=== PATIENT | female | born 1995 | race Caucasian/White ===

== ENCOUNTER 2016-10-31 20:19 | Emergency (ER) | payer OTHER ==
[2016-10-31 20:48] VITALS: BP 118/70; PULSE 71; TEMP 98.4; BMI 30.2
--- NOTE | 2016-11-01 17:27 | EKG ---
Test Reason : Blood Pressure : / mmHG Vent. Rate : 071 BPM Atrial Rate : 071 BPM P-R Int : 158 ms QRS Dur : 086 ms QT Int : 400 ms P-R-T Axes : 042 117 044 degrees QTc Int : 434 ms NORMAL SINUS RHYTHM WITH SINUS ARRHYTHMIA LEFT POSTERIOR FASCICULAR BLOCK ABNORMAL ECG WHEN COMPARED WITH ECG OF 31-OCT-2015 20:52, NO SIGNIFICANT CHANGE WAS FOUND Confirmed by JONI RAY MD ([id number]) on 11/01/2016 5:27:31 PM Referred By: Confirmed By:JONI RAY MD
== END 2016-10-31 23:31 | disposition left against medical advice (07) ==
LOC: JERFT 20:19 → JER 20:19
DX: Z53.21 Procedure and treatment not carried out due to patient leaving prior to being seen by health care provider (principal)
CPT/HCPCS: 93005; 93010; 99281-25

== ENCOUNTER 2017-01-20 12:18 | Emergency (ER) | payer OTHER ==
[2017-01-20 12:25] VITALS: BP 116/66; PULSE 89; TEMP 98; BMI 29.2
--- NOTE | 2017-01-20 13:17 | PDOC ---
History of Present Illness - General Stated Complaint: LUMP Time Seen by Provider: 01/20/17 12:48 - History of Present Illness Initial Comments: 01/20/17 13:12 CHIEF COMPLAINT: lump HISTORY OF PRESENT ILLNESS: 21 yo F presents to fast track with "bump" to buttocks. PAtient states "I was wiping last night and I felt a little bump down there that hurts when I touch it." She denies fever, nausea, vomiting, but reports diarrhea yesterday. She states that she is sexually active with one partner x 3 years and he currently has cold sores. REVIEW OF SYSTEMS General/Constitutional: Denies fever or chills. Respiratory: Denies cough, wheezing, or hemoptysis. Gastrointestinal: Diarrhea yesterday. Denies nausea, vomiting. Genitourinary: Denies dysuria, frequency, or change in urination. Musculoskeletal: Denies joint or muscle swelling or pain. Denies neck or back pain. Skin: "I have a bump down there, it hurts when you touch it but otherwise it's ok." PHYSICAL EXAM General Appearance: Well-appearing, appropriately dressed. No apparent distress. HEENT: EOMI, PERRLA. Respiratory/Chest: Lungs CTAB. Integumentary: 3 open ulcerations inferior to rectum, all approximately 2mmx 2mm in size. Appropriate color, dry, warm. 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 Fully oriented, alert. Appropriate mood/affect. Motor strength 5/5. No appreciable EOM palsy, facial droop or sensory deficit. 01/20/17 13:19 Past History - Past Medical History Allergies/Adverse Reactions: Allergies Allergy/AdvReac Type Severity Reaction Status Date / Time No Known Allergies Allergy Verified 01/20/17 12:25 Home Medications: Ambulatory Orders Valacyclovir HCl [Valtrex] 1,000 mg PO BID #20 tablet 01/20/17 - Immunization History Immunization Up to Date: Yes - Psycho/Social/Smoking Cessation Hx Anxiety: No Suicidal Ideation: No Smoking Status: No Smoking History: Never smoked Have you smoked in the past 12 months: No Number of Cigarettes Smoked Daily: 0 Cigars Per Day: 0 Information on smoking cessation initiated: No Hx Alcohol Use: No Drug/Substance Use Hx: No Substance Use Type: None Hx Substance Use Treatment: No *Physical Exam - Vital Signs Last Vital Signs Temp Pulse Resp BP Pulse Ox 98 F 89 18 116/66 99 01/20/17 12:22 01/20/17 12:22 01/20/17 12:22 01/20/17 12:22 01/20/17 12:22 Medical Decision Making - Medical Decision Making 01/20/17 13:22 21 yo F presents to fast track with "bump" to buttocks. Clinical presentation consistent with herpes. Ulcers swabbed, culture sent. valtrex rx sent to pharm. *DC/Admit/Observation/Transfer Diagnosis at time of Disposition: Herpes - Discharge Dispostion Disposition: HOME Condition at time of disposition: Stable Admit: No - Prescriptions Prescriptions: Valacyclovir HCl [Valtrex] 1,000 mg PO BID #20 tablet - Patient Instructions Printed Discharge Instructions: DI for Genital Herpes, DI for Cold Sores Additional Instructions: Please take medication as prescribed. Call us in one week to follow up with your results. If the bump increases in size, becomes more swollen or painful, or you develop fever, nausea, or vomiting, please return to the ER immediately.
== END 2017-01-20 13:32 | disposition home or self-care (01) ==
LOC: JERFT 12:18
DX: A60.1 Herpesviral infection of perianal skin and rectum (principal)
CPT/HCPCS: 87255; 99281-25

== ENCOUNTER 2017-08-19 06:34 | Emergency (ER) | payer OTHER ==
[2017-08-19 07:01] VITALS: BP 136/66; PULSE 88; TEMP 97.6; BMI 30.2
--- NOTE | 2017-08-19 08:12 | PDOC ---
History of Present Illness - General Chief Complaint: Abscess Boil Stated Complaint: INGROWN HAIR Time Seen by Provider: 08/19/17 07:30 History Source: Patient Exam Limitations: No Limitations - History of Present Illness Initial Comments: 08/19/17 08:07 22F with no pmh presents with ingrown hair in the left buttock since the past 2 weeks. She tried numerous times to pop it with her hand but keeps coming back. No fever, no chills, no other complains. Past History - Past Medical History Allergies/Adverse Reactions: Allergies Allergy/AdvReac Type Severity Reaction Status Date / Time No Known Allergies Allergy Verified 08/19/17 07:00 Home Medications: Ambulatory Orders Valacyclovir HCl [Valtrex] 1,000 mg PO BID #20 tablet 01/20/17 - Immunization History Immunization Up to Date: Yes - Suicide/Smoking/Psychosocial Hx Smoking Status: No Smoking History: Never smoked Have you smoked in the past 12 months: No Number of Cigarettes Smoked Daily: 0 Cigars Per Day: 0 Information on smoking cessation initiated: No Hx Alcohol Use: No Drug/Substance Use Hx: No Substance Use Type: None Hx Substance Use Treatment: No Review of Systems - Review of Systems Able to Perform ROS?: Yes Is the patient limited [place] proficient: No Constitutional: No: Symptoms Reported HEENTM: No: Symptoms Reported Integumentary: No: Symptoms Reported All Other Systems: Reviewed and Negative *Physical Exam - Vital Signs Last Vital Signs Temp Pulse Resp BP Pulse Ox 97.6 F 88 20 136/66 99 08/19/17 07:00 08/19/17 07:00 08/19/17 07:00 08/19/17 07:00 08/19/17 07:00 - Physical Exam General Appearance: Yes: Nourished, Appropriately Dressed, Obese. No: Apparent Distress HEENT: positive: EOMI, JENNIFER, Normal ENT Inspection Respiratory/Chest: positive: Lungs Clear, Normal Breath Sounds Cardiovascular: positive: Regular Rhythm, Regular Rate, S1, S2 Integumentary: positive: Normal Color, Dry, Warm, Other (1cm erythematous area swollen. No cellulitis, no induration) Procedures - Incision and Drainage I&D Site: Left: Buttock Betadine cleansed: Yes Anesthesia: 1% Lidocaine Medical Decision Making - Medical Decision Making 08/19/17 08:12 Patient had already Removed the hair plug. 1mm opening drained of pus. PAtient ok to be discharged. *DC/Admit/Observation/Transfer Diagnosis at time of Disposition: Ingrown hair - Discharge Dispostion Disposition: HOME Condition at time of disposition: Good Admit: No - Referrals Referrals: Gilda Winkler NP [Primary Care Provider] - - Patient Instructions Printed Discharge Instructions: DI for Incision and Drainage of a Skin Abscess Additional Instructions: Come back to the ER for any new, worsening or concerning symptom. - Post Discharge Activity
--- NOTE | 2017-08-19 08:20 | PDOC ---
Attending Attestation - Resident Resident Name: Hardy Gamez - ED Attending Attestation I have performed the following: I have examined & evaluated the patient, The case was reviewed & discussed with the resident, I agree w/resident's findings & plan, Exceptions are as noted - HPI HPI: 22 yo F presents with ingrown hair to perineal region. She was attempting to open it herself at home without success. No fever, chills, drainage of pus. - Physicial Exam PE: GENERAL: Awake, alert, and fully oriented, in no acute distress HEAD: No signs of trauma EYES: PERRLA, EOMI, sclera anicteric, conjunctiva clear ENT: Auricles normal inspection, hearing grossly normal, nares patent, oropharynx clear without exudates. Moist mucosa NECK: Normal ROM, supple, no lymphadenopathy, JVD, or masses LUNGS: Breath sounds equal, clear to auscultation bilaterally. No wheezes, and no crackles HEART: Regular rate and rhythm, normal S1 and S2, no murmurs, rubs or gallops ABDOMEN: Soft, nontender, normoactive bowel sounds. No guarding, no rebound. No masses EXTREMITIES: Normal range of motion, no edema. No clubbing or cyanosis. No cords, erythema, or tenderness NEUROLOGICAL: Cranial nerves II through XII grossly intact. Normal speech, normal gait SKIN: Warm, Dry, normal turgor, no rashes or lesions noted. : Small lesion c/w recent removal of ingrown hair. No cellulitic changes. - Medical Decision Making S/p removal of ingrown hair in ED, stable for DC home. No indication for abx, no signs of localized cellulitis.
[2017-08-20 08:07] LABS: HBsAG SCREEN Negative (Negative); HEPATITIS B CORE ANTIBODY Negative (Negative)
== END 2017-08-19 09:22 | disposition home or self-care (01) ==
LOC: JER 06:34
PROC: 0J990ZZ Drainage of Buttock Subcutaneous Tissue and Fascia, Open Approach (ICD-10-PCS; principal; 2017-08-19)
DX: L73.8 Other specified follicular disorders (principal)
CPT/HCPCS: 10060; 36415; 86704; 86803; 87340; 87389; 99281-25

== ENCOUNTER 2017-10-09 19:37 | Emergency (ER) | payer OTHER ==
--- NOTE | 2017-10-09 19:49 | PDOC ---
Rapid Medical Evaluation Time Seen by Provider: 10/09/17 19:48 Medical Evaluation: Allergies Allergy/AdvReac Type Severity Reaction Status Date / Time No Known Allergies Allergy Verified 08/19/17 07:00 10/09/17 19:48 I have performed a brief in-person evaluation of this patient. The patient presents with a chief complaint of: nosebleed, now resolved Pertinent physical exam findings: well appearing I have ordered the following: nothing The patient will proceed to the ED for further evaluation. Discharge Disposition - Diagnosis Epistaxis - Referrals - Patient Instructions - Post Discharge Activity
[2017-10-09 19:52] VITALS: BP 131/76; PULSE 70; TEMP 99; BMI 29.2
--- NOTE | 2017-10-09 20:32 | PDOC ---
History of Present Illness - General Chief Complaint: Nasal Bleeding Stated Complaint: HEADACHE Time Seen by Provider: 10/09/17 19:48 History Source: Patient - History of Present Illness Timing/Duration: other Associated Symptoms: reports: headaches. denies: fever/chills, nausea/vomiting Past History - Past Medical History Allergies/Adverse Reactions: Allergies Allergy/AdvReac Type Severity Reaction Status Date / Time No Known Allergies Allergy Verified 10/09/17 19:49 Home Medications: Ambulatory Orders NK [No Known Home Medication] 10/09/17 COPD: No - Immunization History Immunization Up to Date: Yes - Suicide/Smoking/Psychosocial Hx Smoking Status: No Smoking History: Never smoked Have you smoked in the past 12 months: No Number of Cigarettes Smoked Daily: 0 Cigars Per Day: 0 Information on smoking cessation initiated: No Hx Alcohol Use: No Drug/Substance Use Hx: No Substance Use Type: None Hx Substance Use Treatment: No Review of Systems - Review of Systems Constitutional: No: Chills, Fever HEENTM: No: Nose Pain, Nose Congestion Neurological: Yes: Headache. No: Dizziness *Physical Exam - Vital Signs Last Vital Signs Temp Pulse Resp BP Pulse Ox 99.0 F 70 16 131/76 100 10/09/17 19:49 10/09/17 19:49 10/09/17 19:49 10/09/17 19:49 10/09/17 19:49 - Physical Exam General Appearance: No: Appropriately Dressed, Apparent Distress HEENT: positive: Normal ENT Inspection, Normal Voice, Pharynx Normal. negative : Scleral Icterus (R), Scleral Icterus (L) Neck: positive: Supple. 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 Patient states while in the store today she started bleeding from her right nares. States bleeding resolved spontaneously after several minutes. States she had epistaxis in childhood that had since resolved. No URI or trauma. Patient not taking any blood thinners. Also reports 1 episode of headache yesterday that improved with Tylenol. No dizziness, nausea or vomiting. Patient well- appearing and stable with no active epistaxis with unremarkable exam. DC with PMD and ENT follow-up *DC/Admit/Observation/Transfer Diagnosis at time of Disposition: Epistaxis Head ache Qualifiers: Headache type: unspecified Headache chronicity pattern: acute headache Intractability: not intractable Qualified Code(s): R51 - Headache - Discharge Dispostion Disposition: HOME Condition at time of disposition: Good - Referrals Referrals: Jamie Blanca MD [Primary Care Provider] - Chintan Cope MD [Staff Physician] - - Patient Instructions Printed Discharge Instructions: DI for Headache, DI for Nosebleed Additional Instructions: If you continue to get headaches, please follow-up with your PMD. In the meantime, take Tylenol or Motrin as needed. The cause of your inose it is unclear at this time, but since it resolves spontaneously, there was no need for intervention in the ER. Please follow-up with Dr. Cope of ENT for further evaluation - Post Discharge Activity
== END 2017-10-09 20:30 | disposition home or self-care (01) ==
LOC: JERFT 19:37
DX: R04.0 Epistaxis (principal); R51 Headache
CPT/HCPCS: 99281-25

== ENCOUNTER 2017-11-06 21:18 | Emergency (ER) | payer OTHER ==
--- NOTE | 2017-11-06 21:23 | PDOC ---
Rapid Medical Evaluation Time Seen by Provider: 11/06/17 21:20 Medical Evaluation: Allergies Allergy/AdvReac Type Severity Reaction Status Date / Time No Known Allergies Allergy Verified 10/09/17 19:49 11/06/17 21:21 I have performed a brief in-person evaluation of this patient. The patient presents with a chief complaint of: dysuria for 2 days Pertinent physical exam findings: ABD SNTND. No CVAT. I have ordered the following: ua, upreg, urine cx The patient will proceed to the ED for further evaluation. Discharge Disposition - Diagnosis Dysuria - Referrals - Patient Instructions - Post Discharge Activity
[2017-11-06 21:28] VITALS: BP 118/67; PULSE 62; TEMP 98.5; BMI 31.1
[2017-11-06 21:46] LABS: HCG,QUALITATIVE URINE NEGATIVE; URINE APPEARANCE CLEAR; URINE BILIRUBIN NEGATIVE (<2.0 mg/dL); URINE COLOR STRAW; URINE GLUCOSE (UA) NEGATIVE (NEGATIVE); URINE KETONE NEGATIVE (NEGATIVE); URINE LEUK ESTERASE NEGATIVE (NEGATIVE); URINE NITRITE NEGATIVE (NEGATIVE); URINE PROTEIN NEGATIVE (NEGATIVE); URINE UROBILINOGEN NEGATIVE mg/dL (0.2-1.0)
--- NOTE | 2017-11-06 22:19 | PDOC ---
*Physical Exam - Vital Signs Last Vital Signs Temp Pulse Resp BP Pulse Ox 98.5 F 62 18 118/67 100 11/06/17 21:27 11/06/17 21:27 11/06/17 21:27 11/06/17 21:27 11/06/17 21:27 - Physical Exam Comments: 11/06/17 22:16 NO CVAT Female Pelvic Exam: positive: normal external exam, cervical os closed, normal adnexa, normal size ovaries. negative: CMT, discharge, lesions, Bartholin mass , adnexal tenderness, vaginal bleeding Gastrointestinal/Abdominal: negative: Distended, Guarding, Rebound, Tenderness ED Treatment Course - ADDITIONAL ORDERS Additional order review: Laboratory Results 11/06/17 21:30 Urine Color Straw Urine Appearance Clear Urine pH 8.0 D Ur Specific [place] 1.010 Urine Protein Negative Urine Glucose (UA) Negative Urine Ketones Negative Urine Blood Negative Urine Nitrite Negative Urine Bilirubin Negative Urine Urobilinogen Negative Ur Leukocyte Esterase Negative Urine HCG, Qual Negative Medical Decision Making - Medical Decision Making Normal vaginal exam normal urine I will have her follow-up with her [employer] 11/06/17 22:18 *DC/Admit/Observation/Transfer Diagnosis at time of Disposition: Dysuria - Referrals Referrals: Jamie Blanca MD [Primary Care Provider] - Maria Del Rosario Little MD [Staff Physician] - - Patient Instructions Printed Discharge Instructions: DI for Dysuria -- Adult Additional Instructions: Return to the emergency rooms if symptoms worsen or go on resolved. 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 - Post Discharge Activity
== END 2017-11-06 22:21 | disposition home or self-care (01) ==
LOC: JERFT 21:18
DX: R30.0 Dysuria (principal)
CPT/HCPCS: 81003; 84703; 87081; 87086; 99281-25

== ENCOUNTER 2018-03-31 07:08 | Emergency (ER) | payer OTHER ==
[2018-03-31 07:33] VITALS: BP 109/61; PULSE 90; TEMP 98.2; BMI 29.2
--- NOTE | 2018-03-31 08:18 | PDOC ---
History of Present Illness - General Chief Complaint: Pain Stated Complaint: NECK PAIN Time Seen by Provider: 03/31/18 08:17 History Source: Patient Exam Limitations: No Limitations - History of Present Illness Initial Comments: 03/31/18 08:39 Patient is a 23-year-old female with no past medical history, who presents to the emergency department today for neck pain starting at 4 AM. Patient states she was play fighting with her cousin yesterday and believes this is the cause of her neck pain. She states that it hurts to move her neck side to side and she was unable to sleep due to the discomfort. She states that her pain mostly is on the right side. Denies fevers, chills, numbness and tingling to the extremities, weakness of the extremities. Past History - Travel Traveled outside of the country in the last 30 days: No Close contact w/someone who was outside of country & ill: No - Past Medical History Allergies/Adverse Reactions: Allergies Allergy/AdvReac Type Severity Reaction Status Date / Time No Known Allergies Allergy Verified 03/31/18 07:27 Home Medications: Ambulatory Orders Cyclobenzaprine HCl [Flexeril -] 10 mg PO HS #10 tablet 03/31/18 Ibuprofen 800 mg PO TID #30 tablet 03/31/18 COPD: No - Immunization History Immunization Up to Date: Yes - Suicide/Smoking/Psychosocial Hx Smoking Status: No Smoking History: Never smoked Have you smoked in the past 12 months: No Number of Cigarettes Smoked Daily: 0 Cigars Per Day: 0 Hx Alcohol Use: No Drug/Substance Use Hx: No Substance Use Type: None Hx Substance Use Treatment: No Review of Systems - Review of Systems Able to Perform ROS?: Yes Comments:: 03/31/18 08:41 CONSTITUTIONAL: Absent: fever, chills, diaphoresis, generalized weakness, malaise, loss of appetite HEENT: Absent: rhinorrhea, nasal congestion, throat pain, throat swelling, difficulty swallowing, mouth swelling, ear pain, eye pain, visual Changes CARDIOVASCULAR: Absent: chest pain, loss of consciousness, palpitations, irregular heart rate, peripheral edema RESPIRATORY: Absent: cough, shortness of breath, dyspnea with exertion, orthopnea, wheezing, stridor, hemoptysis GASTROINTESTINAL: Absent: abdominal pain, abdominal distension, nausea, vomiting, diarrhea, constipation, melena, hematochezia GENITOURINARY: Absent: dysuria, frequency, urgency, hesitancy, hematuria, flank pain, genital pain MUSCULOSKELETAL: Present: neck pain Absent: myalgia, arthralgia, joint swelling SKIN: Absent: rash, itching, pallor HEMATOLOGIC/IMMUNOLOGIC: Absent: easy bleeding, easy bruising, lymphadenopathy, frequent infections ENDOCRINE: Absent: unexplained weight gain, unexplained weight loss, heat intolerance, cold intolerance NEUROLOGIC: Absent: headache, focal weakness or paresthesias, dizziness, unsteady gait, seizure, mental status changes, bladder or bowel incontinence PSYCHIATRIC: Absent: anxiety, depression, suicidal or homicidal ideation, hallucinations. Is the patient limited Citizen Of [place] proficient: No *Physical Exam - Vital Signs Last Vital Signs Temp Pulse Resp BP Pulse Ox 98.2 F 90 18 109/61 99 03/31/18 07:28 03/31/18 07:28 03/31/18 07:28 03/31/18 07:28 03/31/18 07:28 - Physical Exam Comments: 03/31/18 08:47 GENERAL: Well developed, well nourished. Awake and alert. No acute distress. HEENT: Normocephalic, atraumatic. PERRLA, EOMI. No conjunctival pallor. Sclera are non- icteric. Moist mucous membranes. Oropharynx is clear. NECK: Supple. Full ROM. No JVD. Carotid pulses 2+ and symmetric, without bruits. No thyromegaly. No lymphadenopathy. ABDOMINAL: Soft. Non-tender. Non-distended. No rebound or guarding. No organomegaly. Normoactive bowel sounds. MUSCULOSKELETAL Decreased ROM with rotational movements, approximately 60 degrees in both motions. No midline tenderness. TTP of the R trapezium. Normal range of motion at all other joints. No bony deformities or tenderness. No CVA tenderness. EXTREMITIES: No cyanosis. No clubbing. No edema. No calf tenderness. SKIN: Warm and dry. Normal capillary refill. No rashes. No jaundice. NEUROLOGICAL: Alert, awake, appropriate. Cranial nerves 2-12 intact. No deficits to light touch and temperature in face, upper extremities and lower extremities. No motor deficits in the in face, upper extremities and lower extremities. Normoreflexic in the upper and lower extremities. Normal speech. Toes are down- going bilaterally. Gait is normal without ataxia. PSYCHIATRIC: Cooperative. Good eye contact. Appropriate mood and affect. Medical Decision Making - Medical Decision Making 03/31/18 09:05 Patient is a 23-year-old female who presents emergency department today for right-sided neck pain after play fighting with a cousin. On exam there is no midline tenderness. Patient is able to touch her chin to her chest without pain. Pain with rotational movements. Most likely a musculoskeletal strain. We' ll give ibuprofen at this time. Discharge patient home with ibuprofen and Flexeril. 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 Return precautions given. Patient is a discharge instructions and all questions were answered. *DC/Admit/Observation/Transfer Diagnosis at time of Disposition: Neck pain - Discharge Dispostion Disposition: HOME Condition at time of disposition: Stable Decision to Admit order: No - Prescriptions Prescriptions: Cyclobenzaprine HCl [Flexeril -] 10 mg PO HS #10 tablet Ibuprofen 800 mg PO TID #30 tablet - Referrals Referrals: Jamie Blanca MD [Primary Care Provider] - - Patient Instructions Printed Discharge Instructions: DI for Neck Pain Additional Instructions: You have neck pain due to a muscle spasm. Please take ibuprofen 800 mg 3 times a day not to exceed 3000 mg a day. You were also prescribed Flexeril. Take the medication before you go to bed. Do not drive after taking this medication as it may make you sleepy. You may use warm compresses on your back to help with her symptoms. Please follow-up with your primary care doctor. If your symptoms do not resolve in 3-5 days, follow-up with orthopedics. A referral has been provided for you. Return to the emergency department if you have worsening neck pain, bladder or bowel incontinence, numbness and tingling in your arms, changes in the way you walk, or any new or worsening symptoms. - Post Discharge Activity Forms/Work/School Notes: Back to Work
== END 2018-03-31 08:54 | disposition home or self-care (01) ==
LOC: JERFT 07:08 → JER 07:08 → JERFT 08:54
DX: M62.838 Other muscle spasm (principal); X50.9XXA Other and unspecified overexertion or strenuous movements or postures, initial encounter; Y93.83 Activity, rough housing and horseplay; Y92.038 Other place in apartment as the place of occurrence of the external cause; Y99.8 Other external cause status
CPT/HCPCS: 99281-25

== ENCOUNTER 2018-04-02 11:49 | Emergency (ER) | payer OTHER ==
[2018-04-02 12:03] VITALS: BP 124/73; PULSE 85; TEMP 98.8; BMI 29.2
--- NOTE | 2018-04-02 13:06 | PDOC ---
History of Present Illness - General Chief Complaint: Injury Stated Complaint: HEAD/NECK PROBLEM Time Seen by Provider: 04/02/18 12:54 - History of Present Illness Initial Comments: 23-year-old female without comorbidities presents for reevaluation of ongoing neck pain after play fighting last week. Since her discharge from the emergency room she was placed on ibuprofen and Flexeril her pain increased. She now complains of radicular symptoms. Her radicular symptoms including the right arm to the level of the elbow. She has marked decreased neck range of motion and now an associated headache without nausea or visual changes. 04/02/18 13:03 Past History - Past Medical History Allergies/Adverse Reactions: Allergies Allergy/AdvReac Type Severity Reaction Status Date / Time No Known Allergies Allergy Verified 04/02/18 12:03 Home Medications: Ambulatory Orders Cyclobenzaprine HCl [Flexeril -] 10 mg PO HS #10 tablet 03/31/18 Ibuprofen 800 mg PO TID #30 tablet 03/31/18 COPD: No DVT: No - Immunization History Immunization Up to Date: Yes - Suicide/Smoking/Psychosocial Hx Smoking Status: No Smoking History: Never smoked Have you smoked in the past 12 months: No Number of Cigarettes Smoked Daily: 0 Cigars Per Day: 0 Information on smoking cessation initiated: No Hx Alcohol Use: No Drug/Substance Use Hx: No Substance Use Type: None Hx Substance Use Treatment: No Review of Systems - Review of Systems HEENTM: No: Blurred Vision ABD/GI: No: Nausea Musculoskeletal: Yes: Neck Pain Neurological: Yes: See HPI, Headache, Tingling All Other Systems: Reviewed and Negative *Physical Exam - Vital Signs Last Vital Signs Temp Pulse Resp BP Pulse Ox 98.8 F 85 17 124/73 100 04/02/18 12:02 04/02/18 12:02 04/02/18 12:02 04/02/18 12:02 04/02/18 12:02 - Physical Exam Comments: HEAD: NC/AT EYES: Conjuntiva clear, EOMI, PERRL Ears: Canals and TM's normal NOSE: No d/c THROAT: Moist mucous membrances, oral pharanx clear, uvula midline CARDIAC: S1 S2 LUNGS: CTA Full and Equal breath sounds ABDOMEN: Soft NT ND MS: Full ROM in all joints without edema NEUROLOGIC: No gross sensory or motor deficits, NVID SKIN: Normal color and temperature no lesions or rashes Cervical spine skin color and temperature are normal. Range of motion is severely decreased. There is moderate paracervical musculature spasm. Mild midline tenderness. 5 out of 5 strength in bilateral upper extremities. There are no gross sensorimotor deficits. She is unable to tolerate Spurling maneuver. 04/02/18 13:05 Medical Decision Making - Medical Decision Making CAT scan results were reviewed. I will give the patient neurology follow-up. She already has prescriptions for Motrin and Flexeril. I have informed her about the CAT scan results 04/02/18 15:34 *DC/Admit/Observation/Transfer Diagnosis at time of Disposition: Cervical strain, Closed head injury - Discharge Dispostion Disposition: HOME Condition at time of disposition: Stable Decision to Admit order: No - Referrals Referrals: Jamie Blanca MD [Primary Care Provider] - Caly Mendez DO [Staff Physician] - Carlito Bennett MD [Staff Physician] - - Patient Instructions Additional Instructions: There is a finding on your CAT scan which requires neurologic follow-up. Please follow-up with neurology in 1-2 days for further evaluation and treatment options. Continue taking the Motrin and Flexeril as directed fear pain. Return to the emergency room should symptoms worsen or go unresolved. In addition to neurology follow-up I recommended that you follow up with spine surgery for further evaluation and treatment of your neck pain. He should follow-up with spine surgery in 1-2 days as well. - Post Discharge Activity
[2018-04-02] MEDS ORDERED: ACETAMINOPHEN 500 MG TABLET (FP) PO ONE (13:45)
[2018-04-02] MEDS ORDERED: ACETAMINOPHEN 500 MG TABLET (FP) ONE (13:47)
== END 2018-04-02 15:43 | disposition home or self-care (01) ==
LOC: JERFT 11:49
DX: S09.90XA Unspecified injury of head, initial encounter (principal); S16.1XXA Strain of muscle, fascia and tendon at neck level, initial encounter; X58.XXXA Exposure to other specified factors, initial encounter; Y93.89 Activity, other specified; Y92.9 Unspecified place or not applicable
CPT/HCPCS: 70450-TC; 72125-TC; 84703; 99281-25

== ENCOUNTER 2018-12-15 11:06 | Emergency (ER) | payer OTHER | END 2018-12-15 12:22 | disposition left against medical advice (07) | LOC: JER 11:06 ==

== ENCOUNTER 2019-06-01 08:50 | Emergency (ER) | payer OTHER ==
[2019-06-01 09:01] VITALS: BP 113/72; PULSE 79; TEMP 98.3; BMI 35.6
--- NOTE | 2019-06-01 09:16 | PDOC ---
History of Present Illness - General Chief Complaint: Urinary Problem Stated Complaint: R/O UTI Time Seen by Provider: 06/01/19 09:01 History Source: Patient Exam Limitations: Other - History of Present Illness Timing/Duration: reports: getting worse Past History - Past Medical History Allergies/Adverse Reactions: Allergies Allergy/AdvReac Type Severity Reaction Status Date / Time No Known Allergies Allergy Verified 06/01/19 09:01 Home Medications: Ambulatory Orders Cyclobenzaprine HCl [Flexeril -] 10 mg PO HS #10 tablet 03/31/18 Ibuprofen 800 mg PO TID #30 tablet 03/31/18 Nitrofurantoin Monohyd/M-Cryst [Macrobid -] 100 mg PO BID #14 capsule 06/01/19 COPD: No DVT: No - Immunization History Immunization Up to Date: Yes - Psycho Social/Smoking Cessation Hx Smoking Status: No Smoking History: Never smoked Have you smoked in the past 12 months: No Number of Cigarettes Smoked Daily: 0 Cigars Per Day: 0 Information on smoking cessation initiated: No Hx Alcohol Use: No Drug/Substance Use Hx: No Substance Use Type: None Hx Substance Use Treatment: No Abd/GI Specific PMHX - Complaint Specific PMHX Colitis: No Diverticulitis: No Gall Bladder Disease: No GERD: No Hepatitis: No Irritable Bowel Synd (IBS): No Pancreatitis: No GI Ulcer Disease: No Review of Systems - Review of Systems Constitutional: No: Chills, Fever ABD/GI: No: Nausea, Vomiting : Yes: Dysuria. No: Discharge, Flank Pain, Hematuria *Physical Exam - Vital Signs Last Vital Signs Temp Pulse Resp BP Pulse Ox 98.3 F 79 16 113/72 100 06/01/19 08:59 06/01/19 08:59 06/01/19 08:59 06/01/19 08:59 06/01/19 08:59 - Physical Exam General Appearance: Yes: Appropriately Dressed. No: Apparent Distress HEENT: positive: Normal Voice Neck: positive: Supple Respiratory/Chest: negative: Respiratory Distress Gastrointestinal/Abdominal: positive: Soft. negative: Tender Musculoskeletal: negative: CVA Tenderness Integumentary: positive: Dry, Warm Neurologic: positive: Fully Oriented, Alert, Normal Mood/Affect Medical Decision Making - Medical Decision Making 06/01/19 09:09 24-year-old female, endorses history of frequent UTIs, here with malodorous urine for 1 month and for the past several days has had pain when she urinates. No flank pain, nausea, vomiting, fever, chills vaginal discharge, itch or odor. see exam Dysuria C/w prior UTI (multiple +ucx w/ sen here) No e/o pyelo +LE and apollo on ua, cx sent -dc w/ macrobid -to return as needed 06/01/19 09:31 Discharge - Discharge Information Problems reviewed: Yes Clinical Impression/Diagnosis: UTI (urinary tract infection) Qualifiers: Urinary tract infection type: acute cystitis Hematuria presence: without hematuria Qualified Code(s): N30.00 - Acute cystitis without hematuria Condition: Good Disposition: HOME - Additional Discharge Information Prescriptions: Nitrofurantoin Monohyd/M-Cryst [Macrobid -] 100 mg PO BID #14 capsule - Follow up/Referral - Patient Discharge Instructions Patient Printed Discharge Instructions: Urinary Tract Infection Additional Instructions: Take medications as directed and return as needed - Post Discharge Activity
[2019-06-01 09:20] LABS: EPI CELLS 1.7 /HPF (0-5/HPF); HYALINE CASTS 0 /lpf (0-8); PH,URINE 5.5 (5.0-8.0); URINE APPEARANCE CLEAR; URINE BILIRUBIN NEGATIVE (NEGATIVE); URINE COLOR YELLOW; URINE GLUCOSE (UA) NEGATIVE (NEGATIVE); URINE KETONE NEGATIVE (NEGATIVE); URINE LEUK ESTERASE 1+ (NEGATIVE); URINE NITRITE NEGATIVE (NEGATIVE); URINE PROTEIN NEGATIVE (NEGATIVE); URINE RBC 1 /hpf (0-4); URINE UROBILINOGEN 0.2 mg/dL (0.2-1.0); URINE WBC 36 /hpf (0-5)
== END 2019-06-01 09:35 | disposition home or self-care (01) ==
LOC: JERFT 08:50
DX: N30.00 Acute cystitis without hematuria (principal); Z87.440 Personal history of urinary (tract) infections
CPT/HCPCS: 81003; 84703; 87086; 87186; 99282-25

== ENCOUNTER 2019-06-04 21:48 | Emergency (ER) | payer OTHER ==
[2019-06-04 22:05] VITALS: BP 116/76; PULSE 84; TEMP 99.1; BMI 35.6
[2019-06-04 23:31] LABS: EPI CELLS 11.4 /HPF (0-5/HPF); HYALINE CASTS 6 /lpf (0-8); PH,URINE 5.5 (5.0-8.0); URINE APPEARANCE CLOUDY; URINE BACTERIA 660.4 /hpf (NEGATIVE); URINE BILIRUBIN NEGATIVE (NEGATIVE); URINE COLOR YELLOW; URINE GLUCOSE (UA) NEGATIVE (NEGATIVE); URINE KETONE NEGATIVE (NEGATIVE); URINE LEUK ESTERASE 1+ (NEGATIVE); URINE NITRITE NEGATIVE (NEGATIVE); URINE PROTEIN TRACE (NEGATIVE); URINE RBC 1 /hpf (0-4); URINE WBC 28 /hpf (0-5)
--- NOTE | 2019-06-04 23:36 | PDOC ---
History of Present Illness - General Chief Complaint: Vaginal Sxs Stated Complaint: UTI SYX Time Seen by Provider: 06/04/19 23:29 History Source: Patient Exam Limitations: No Limitations - History of Present Illness Initial Comments: 24 yo obese healthy female presents with dysuria, frequency, and urgency stating she thinks she has a UTI and was given Abx last week but they didn't help and she still has the infection. She was given a drug that starts with an N and thinks it was nitrofurantoin. She denies any abdominal or flank pain. PCP: Rianna PSH: None reported Social Hx: Denies smoking, drinking, or other substance usage Allergies: NKA, NKDA Past History - Past Medical History Allergies/Adverse Reactions: Allergies Allergy/AdvReac Type Severity Reaction Status Date / Time No Known Allergies Allergy Verified 06/04/19 22:57 Home Medications: Ambulatory Orders Cyclobenzaprine HCl [Flexeril -] 10 mg PO HS #10 tablet 03/31/18 Ibuprofen 800 mg PO TID #30 tablet 03/31/18 Cephalexin Monohydrate [Keflex -] 500 mg PO BID 7 Days #14 capsule 06/04/19 COPD: No DVT: No - Immunization History Immunization Up to Date: Yes - Psycho Social/Smoking Cessation Hx Smoking Status: No Smoking History: Never smoked Have you smoked in the past 12 months: No Number of Cigarettes Smoked Daily: 0 Cigars Per Day: 0 Hx Alcohol Use: No Drug/Substance Use Hx: No Substance Use Type: None Hx Substance Use Treatment: No Abd/GI Specific PMHX - Complaint Specific PMHX Colitis: No Diverticulitis: No Gall Bladder Disease: No GERD: No Hepatitis: No Irritable Bowel Synd (IBS): No Pancreatitis: No GI Ulcer Disease: No Review of Systems - Review of Systems Able to Perform ROS?: Yes Comments:: CONSTITUTIONAL: Absent: fever, no chills, no fatigue EYES: Absent: visual changes ENT: Absent: ear pain, no sore throat CARDIOVASCULAR: Absent: chest pain, no palpitations RESPIRATORY: Absent: cough, no SOB GI: Absent: abdominal pain, no nausea, no vomiting, no constipation, no diarrhea GENITOURINARY: Present: Dysuria, freuqneyc, urgency Absent: no hematuria MUSKULOSKELETAL: Absent: back pain, no arthralgia, no myalgia SKIN: Absent: rash NEURO: Absent: headache *Physical Exam - Vital Signs Last Vital Signs Temp Pulse Resp BP Pulse Ox 99.1 F 84 19 116/76 97 06/04/19 22:02 06/04/19 22:02 06/04/19 22:02 06/04/19 22:02 06/04/19 22:02 - Physical Exam GENERAL: Well-appearing, well-nourished. No apparent distress. HEENT: Normocephalic, atraumatic. PERRL, EOM intact. CARDIOVASCULAR: Normal S1, S2. Regular rate and rhythm. PULMONARY: No evidence of respiratory distress. Lungs clear to auscultation bilaterally. No wheezing, rales or rhonchi. ABDOMEN: Soft, non-distended, non-tender. EXTREMITIES: Normal ROM in all four extremities. No gross deformities. SKIN: Warm, dry. No rash NEUROLOGICAL: No focal neurological deficits. ED Treatment Course - ADDITIONAL ORDERS Additional order review: Laboratory Results 06/04/19 06/04/19 23:00 23:00 Urine Color Yellow Urine Appearance Cloudy Urine pH 5.5 Ur Specific [place] 1.025 Urine Protein Trace Urine Glucose (UA) Negative Urine Ketones Negative Urine Blood Negative Urine Nitrite Negative Urine Bilirubin Negative Urine Urobilinogen 1.0 Ur Leukocyte Esterase 1+ H Urine WBC (Auto) 28 Urine RBC (Auto) 1 Urine Casts (Auto) 6 U Epithel Cells (Auto) 11.4 Urine Bacteria (Auto) 660.4 Urine HCG, Qual Negative Medical Decision Making - Medical Decision Making 24 yo obese healthy female presents with dysuria, frequency, and urgency stating she thinks she has a UTI and was given Abx last week but they didn't help and she still has the infection. She was given a drug that starts with an N and thinks it was nitrofurantoin. She denies any abdominal or flank pain. Vital Signs Temp Pulse Resp BP Pulse Ox 99.1 F 84 19 116/76 97 06/04/19 22:02 06/04/19 22:02 06/04/19 22:02 06/04/19 22:02 06/04/19 22:02 MDM: Patient presents w UTI symptoms and her last culture had a high M/I.C number to nitrofurantoin the Abx she got - Will send keflex to pharmacy and DC with return precautions and PCP fu Discharge - Discharge Information Problems reviewed: Yes Clinical Impression/Diagnosis: UTI (urinary tract infection) Qualifiers: Urinary tract infection type: acute cystitis Hematuria presence: without hematuria Qualified Code(s): N30.00 - Acute cystitis without hematuria Condition: Stable - Admission No - Additional Discharge Information Prescriptions: Cephalexin Monohydrate [Keflex -] 500 mg PO BID 7 Days #14 capsule - Follow up/Referral Referrals: Jamie Blanca MD [Primary Care Provider] - - Patient Discharge Instructions Patient Printed Discharge Instructions: Urinary Tract Infection Additional Instructions: You came into the ER with a UTI which was not treated appropriately with your last set of antibiotics We sent a new set of antibiotics to your pharmacy - Keflex. Please go and potato picker and take accordingly. Come back to the ER if your symptoms do not resolve in the next 5 days. Please schedule a follow up appointment with your pcp in the next week. Print Language: TAMAZIGHT - Post Discharge Activity
--- NOTE | 2019-06-05 | PDOC ---
Attending Attestation - Resident Resident Name: Kristian Gage - ED Attending Attestation I have performed the following: I have examined & evaluated the patient, The case was reviewed & discussed with the resident, I agree w/resident's findings & plan, Exceptions are as noted - HPI HPI: 06/05/19 03:30 See resident HPI - Physicial Exam PE: 06/05/19 03:31 Agree with exam as documented by resident - Medical Decision Making 06/05/19 03:31 Recently seen for UTI, given nitrofurantoin, UCx show borderline sensitivity Will switch to course of keflex Rx of keflex to pharmacy of choice F/u pcp dc
== END 2019-06-04 23:55 | disposition home or self-care (01) ==
LOC: JERFT 21:48 → JER 21:48
DX: N30.00 Acute cystitis without hematuria (principal)
CPT/HCPCS: 81003; 84703; 87086; 99282-25

== ENCOUNTER 2019-06-10 18:15 | Emergency (ER) | payer OTHER ==
[2019-06-10 18:32] VITALS: BP 122/77; PULSE 98; TEMP 98.2; BMI 35.6
--- NOTE | 2019-06-10 18:39 | PDOC ---
History of Present Illness - General Chief Complaint: Pain, Acute Stated Complaint: BACK PAIN Time Seen by Provider: 06/10/19 18:26 History Source: Patient - History of Present Illness Timing/Duration: reports: constant Quality: reports: moderate Abdominal Pain Onset Location: reports: flank Past History - Past Medical History Allergies/Adverse Reactions: Allergies Allergy/AdvReac Type Severity Reaction Status Date / Time No Known Allergies Allergy Verified 06/10/19 18:32 Home Medications: Ambulatory Orders Cyclobenzaprine HCl [Flexeril -] 10 mg PO HS #10 tablet 03/31/18 Ibuprofen 800 mg PO TID #30 tablet 03/31/18 Cephalexin Monohydrate [Keflex -] 500 mg PO BID 7 Days #14 capsule 06/04/19 Sulfamethoxazole/Trimethoprim [Bactrim Ds -] 1 tab PO BID #20 tablet 06/10/19 COPD: No DVT: No - Reproductive History Therapeutic (s) & number: No - Immunization History Immunization Up to Date: Yes - Psycho Social/Smoking Cessation Hx Smoking Status: No Smoking History: Never smoked Have you smoked in the past 12 months: No Number of Cigarettes Smoked Daily: 0 Cigars Per Day: 0 Information on smoking cessation initiated: No Hx Alcohol Use: No Drug/Substance Use Hx: No Substance Use Type: None Hx Substance Use Treatment: No Abd/GI Specific PMHX - Complaint Specific PMHX Colitis: No Diverticulitis: No Gall Bladder Disease: No GERD: No Hepatitis: No Irritable Bowel Synd (IBS): No Pancreatitis: No GI Ulcer Disease: No Review of Systems - Review of Systems Constitutional: No: Chills, Fever ABD/GI: No: Nausea, Vomiting : Yes: Flank Pain. No: Burning, Dysuria, Discharge, Hematuria *Physical Exam - Vital Signs Last Vital Signs Temp Pulse Resp BP Pulse Ox 98.2 F 98 H 17 122/77 100 06/10/19 18:20 06/10/19 18:20 06/10/19 18:20 06/10/19 18:20 06/10/19 18:20 - Physical Exam General Appearance: Yes: Appropriately Dressed. No: Apparent Distress HEENT: positive: Normal Voice Neck: positive: Supple Gastrointestinal/Abdominal: positive: Normal Bowel Sounds, Soft. negative: Tender, Distended, Guarding, Rebound Musculoskeletal: negative: CVA Tenderness Integumentary: positive: Dry, Warm Neurologic: positive: Fully Oriented, Alert, Normal Mood/Affect Medical Decision Making - Medical Decision Making 06/10/19 18:33 24 yo F, here w/ persistent R flank pain. Pt was originally seen by me on 06/01 for dysuria. Started on macrobid which was sensitive on ucx but pt returned 06/04 w/ persistent sxs and started on Keflex. Pt states she has no dysuria at this time and no hematuria, n/v/f/c but continues to have some R flank pain. No h/o renal stones. Pt well tree and stable w/ no overt CVAT. Will dc w/ abx w/ kidney penetration for ? pyelo. Based on ucx, will start on bactrim. Strict return precautions given to pt Discharge - Discharge Information Problems reviewed: Yes Clinical Impression/Diagnosis: Flank pain Condition: Good Disposition: HOME - Additional Discharge Information Prescriptions: Sulfamethoxazole/Trimethoprim [Bactrim Ds -] 1 tab PO BID #20 tablet - Follow up/Referral - Patient Discharge Instructions Patient Printed Discharge Instructions: DI for Kidney Infection Additional Instructions: Stop taking Keflex and start taking Bactrim Return for persistent or worsening of symptoms - Post Discharge Activity
== END 2019-06-10 19:58 | disposition home or self-care (01) ==
LOC: JER 18:15 → JERFT 18:15
DX: R10.31 Right lower quadrant pain (principal)
CPT/HCPCS: 99281-25

== ENCOUNTER 2019-06-11 09:36 | Emergency (ER) | payer OTHER ==
[2019-06-11 09:51] VITALS: BP 125/76; PULSE 117; TEMP 98.9; BMI 35.6
--- NOTE | 2019-06-11 10:28 | PDOC ---
History of Present Illness - General Chief Complaint: Back Pain Stated Complaint: NUMBNESS/LEGS Time Seen by Provider: 06/11/19 10:15 Past History - Past Medical History Allergies/Adverse Reactions: Allergies Allergy/AdvReac Type Severity Reaction Status Date / Time No Known Allergies Allergy Verified 06/11/19 09:48 Home Medications: Ambulatory Orders Cephalexin Monohydrate [Keflex -] 500 mg PO BID 7 Days #14 capsule 06/04/19 Levofloxacin 1 tab PO DAILY 06/11/19 COPD: No DVT: No - Reproductive History Therapeutic (s) & number: No - Immunization History Immunization Up to Date: Yes - Psycho Social/Smoking Cessation Hx Smoking Status: No Smoking History: Smoker current status UNK Have you smoked in the past 12 months: No Number of Cigarettes Smoked Daily: 0 Cigars Per Day: 0 Hx Alcohol Use: No Drug/Substance Use Hx: No Substance Use Type: None Hx Substance Use Treatment: No Review of Systems - Review of Systems Is the patient limited Slovak proficient: Yes *Physical Exam - Vital Signs Last Vital Signs Temp Pulse Resp BP Pulse Ox 98.9 F 117 H 18 125/76 98 06/11/19 09:49 06/11/19 09:49 06/11/19 09:49 06/11/19 09:49 06/11/19 09:49
--- NOTE | 2019-06-11 10:28 | PDOC ---
History of Present Illness - General Chief Complaint: Back Pain Stated Complaint: NUMBNESS/LEGS Time Seen by Provider: 06/11/19 10:15 History Source: Patient Exam Limitations: No Limitations - History of Present Illness Initial Comments: 06/11/19 10:21 Patient returns to the emergency department, 4 times the past week for multiple complaints including dysuria and was treated with 3 different antibiotics but reports complaints of pain and burning have resolved. However patient continues to complain of back pain and was told yesterday may have potential pyelonephritis. Patient denies fever, chills, dysuria, bleeding, or any other urinary complaints today. Came to ER again today to report numbness in her legs and low back pain. 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 Patient is taken no medications for relief of her back pain, has used cyclobenzaprine in the past with significant relief. States pain is bilateral at waistline and extending into buttocks. Occurred: reports: last week Severity: reports: mild, moderate Pain Location: reports: back, lower extremity (Bilateral legs) Method of Injury: Yes: unknown Loss of Consciousness: no loss of consciousness Past History - Travel Traveled outside of the country in the last 30 days: No Close contact w/someone who was outside of country & ill: No - Past Medical History Allergies/Adverse Reactions: Allergies Allergy/AdvReac Type Severity Reaction Status Date / Time No Known Allergies Allergy Verified 06/11/19 09:48 Home Medications: Ambulatory Orders Cephalexin Monohydrate [Keflex -] 500 mg PO BID 7 Days #14 capsule 06/04/19 Cyclobenzaprine HCl 10 mg PO Q8H PRN #14 tablet 06/11/19 Levofloxacin 1 tab PO DAILY 06/11/19 Naproxen [Naprosyn -] 500 mg PO BID #30 tablet 06/11/19 COPD: No DVT: No - Reproductive History Therapeutic (s) & number: No - Immunization History Immunization Up to Date: Yes - Psycho Social/Smoking Cessation Hx Smoking Status: No Smoking History: Smoker current status UNK Have you smoked in the past 12 months: No Number of Cigarettes Smoked Daily: 0 Cigars Per Day: 0 Hx Alcohol Use: No Drug/Substance Use Hx: No Substance Use Type: None Hx Substance Use Treatment: No Review of Systems - Review of Systems Able to Perform ROS?: Yes Is the patient limited Korean proficient: Yes Constitutional: Yes: Symptoms Reported, See HPI, Malaise. No: Fever HEENTM: Yes: See HPI. No: Symptoms Reported Respiratory: Yes: See HPI. No: Symptoms reported Musculoskeletal: Yes: Symptoms Reported, See HPI, Back Pain, Muscle Pain. No: Joint Pain Integumentary: Yes: See HPI. No: Symptoms Reported, Bruising All Other Systems: Reviewed and Negative *Physical Exam - Vital Signs Last Vital Signs Temp Pulse Resp BP Pulse Ox 98.9 F 117 H 18 125/76 98 06/11/19 09:49 06/11/19 09:49 06/11/19 09:49 06/11/19 09:49 06/11/19 09:49 - Physical Exam General Appearance: Yes: Nourished, Appropriately Dressed, Mild Distress. No: Apparent Distress (Able to get off bed without hesitation and ambulate to fast track with steady gait) HEENT: positive: JENNIFER, Normal ENT Inspection, Normal Voice, TMs Normal, Pharynx Normal Neck: positive: Supple. negative: Tender Respiratory/Chest: positive: Lungs Clear Gastrointestinal/Abdominal: positive: Normal Bowel Sounds, Soft Musculoskeletal: positive: Decreased Range of Motion, Muscle Spasm (Tender tight musculature to the paravertebral spinous muscles of lower back. 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 Will treat with NSAIDs and cyclobenzaprine. Urinalysis is clear of any infection and UCG negative. 06/11/19 11:05 Discharge - Discharge Information Problems reviewed: Yes Clinical Impression/Diagnosis: Low back strain Qualifiers: Encounter type: initial encounter Qualified Code(s): S39.012A - Strain of muscle, fascia and tendon of lower back, initial encounter Condition: Stable Disposition: HOME - Admission No - Additional Discharge Information Prescriptions: Cyclobenzaprine HCl 10 mg PO Q8H PRN #14 tablet PRN Reason: spasm Naproxen [Naprosyn -] 500 mg PO BID #30 tablet - Follow up/Referral Referrals: Jamie Blanca MD [Primary Care Provider] - Simon Rico MD [Staff Physician] - - Patient Discharge Instructions Patient Printed Discharge Instructions: DI for Back Strain or Sprain Additional Instructions: Rest, no heavy lifting or exercise until pain is resolved Hot soaks to neck and low back as often as possible/hot showers or Jacuzzis No massage or therapy until spasm is gone Continue Naprosyn 500 mg tablet, 1 tablet every 8 hours for the next 3 days then as needed for pain and swelling Cyclobenzaprine 1-10mg every 8 hours as needed for spasm If not significant improvement within 24 hours with medication and rest regime, followup with private physician for change in medications and /or therapy. - Post Discharge Activity
[2019-06-11] MEDS ORDERED: NAPROXEN 500 MG TABLET (FP) ONE (10:35)
[2019-06-11] MEDS ORDERED: NAPROXEN 500 MG TABLET (FP) PO ONE (10:40)
[2019-06-11 10:45] LABS: URINE APPEARANCE CLEAR; URINE BILIRUBIN NEGATIVE (NEGATIVE); URINE COLOR YELLOW; URINE GLUCOSE (UA) NEGATIVE (NEGATIVE); URINE KETONE NEGATIVE (NEGATIVE); URINE LEUK ESTERASE NEGATIVE (NEGATIVE); URINE NITRITE NEGATIVE (NEGATIVE); URINE PROTEIN NEGATIVE (NEGATIVE); URINE UROBILINOGEN 0.2 mg/dL (0.2-1.0)
== END 2019-06-11 11:59 | disposition home or self-care (01) ==
LOC: JER 09:36
DX: S39.012A Strain of muscle, fascia and tendon of lower back, initial encounter (principal); X58.XXXA Exposure to other specified factors, initial encounter; Y93.89 Activity, other specified; Y92.89 Other specified places as the place of occurrence of the external cause
CPT/HCPCS: 81003; 84703; 99283-25

== ENCOUNTER 2019-07-07 22:15 | Emergency (ER) | payer OTHER ==
[2019-07-07 22:32] VITALS: BP 122/78; PULSE 114; TEMP 98.9; BMI 34.7
--- NOTE | 2019-07-07 23:08 | PDOC ---
History of Present Illness - General Chief Complaint: Vaginal Bleeding Stated Complaint: BACK PAIN/VAGINAL BLEEDING Time Seen by Provider: 07/07/19 22:52 - History of Present Illness Initial Comments: The pt is a 24F w/ no reported PMH with a recent UTI, s/p depot shot 3 months ago presents for evaluation of vaginal bleeding for 1 day. She reports she is due for her next depot shot. She denies any other new/acute symptoms. She denies fevers/chills, abdominal cramping/pain, dysuria, hematuria, vaginal discharge, diarrhea, blood in her stool, or changes in sensation. 07/07/19 23:07 Past History - Past Medical History Allergies/Adverse Reactions: Allergies Allergy/AdvReac Type Severity Reaction Status Date / Time No Known Allergies Allergy Verified 06/11/19 09:48 Home Medications: Ambulatory Orders Cephalexin Monohydrate [Keflex -] 500 mg PO BID 7 Days #14 capsule 06/04/19 Cyclobenzaprine HCl 10 mg PO Q8H PRN #14 tablet 06/11/19 Levofloxacin 1 tab PO DAILY 06/11/19 Naproxen [Naprosyn -] 500 mg PO BID #30 tablet 06/11/19 Cephalexin Monohydrate [Keflex -] 500 mg PO BID #14 capsule 07/08/19 Phenazopyridine HCl [Pyridium -] 100 mg PO PC #6 tablet 07/08/19 COPD: No DVT: No - Reproductive History Cervical CA: No Dysfunctional Uterine Bleeding: No Ectopic : No Endometrial CA: No Polycystic Ovaries: No Therapeutic (s) & number: No - Immunization History Immunization Up to Date: Yes - Psycho Social/Smoking Cessation Hx Smoking Status: No Smoking History: Never smoked Have you smoked in the past 12 months: No Number of Cigarettes Smoked Daily: 0 Cigars Per Day: 0 Hx Alcohol Use: No Drug/Substance Use Hx: No Substance Use Type: None Hx Substance Use Treatment: No Review of Systems - Review of Systems Able to Perform ROS?: Yes Comments:: GENERAL/CONSTITUTIONAL: No fever or chills. No weakness HEAD, EYES, EARS, NOSE AND THROAT: No change in vision. No change in hearing. No sore throat CARDIOVASCULAR: No chest pain or shortness of breath RESPIRATORY: Denies cough, hemoptysis GASTROINTESTINAL: No nausea, vomiting, diarrhea or constipation GENITOURINARY: No dysuria, frequency, or change in urination MUSCULOSKELETAL: No joint or muscle swelling or pain. No neck pain SKIN: No rash NEUROLOGIC: No headache, vertigo, loss of consciousness, or change in strength/ sensation ENDOCRINE: No increased thirst. No abnormal weight change HEMATOLOGIC/LYMPHATIC: No anemia, easy bleeding, or history of blood clots ALLERGIC/IMMUNOLOGIC: No hives or skin allergy 07/07/19 23:23 Is the patient limited [place] Islander proficient: No *Physical Exam - Vital Signs Last Vital Signs Temp Pulse Resp BP Pulse Ox 98.9 F 114 H 20 122/78 97 07/07/19 22:27 07/07/19 22:27 07/07/19 22:27 07/07/19 22:27 07/07/19 22:27 - Physical Exam GENERAL: Awake, alert, and oriented to person/place/time, in no acute distress HEAD: No signs of trauma, normocephalic, atraumatic EYES: PERRLA, EOMI, sclera anicteric, conjunctiva clear ENT: Hearing grossly normal, nares patent, oropharynx clear without exudates. Moist mucosa LUNGS: No distress, speaks in full sentences, clear to auscultation bilaterally HEART: Regular rate and rhythm, normal S1 and S2, no murmurs appreciated, peripheral pulses normal and equal bilaterally ABDOMEN: Soft, nontender, normoactive bowel sounds. No guarding, no rebound EXTREMITIES: Normal inspection, Normal range of motion, no edema. No clubbing or cyanosis NEUROLOGICAL: Cranial nerves II through XII grossly intact. Normal speech, no focal sensorimotor deficits SKIN: Warm, Dry 07/07/19 23:22 Medical Decision Making - Medical Decision Making The pt is a 24F w/ no reported PMH with a recent UTI, s/p depot shot 3 months ago presents for evaluation of vaginal bleeding for 1 day. Ddx preg, UTI, recurrence of menses ED Course Will send UA, Upregnd UCx 07/07/19 23:24 Upreg neg UA w/ evidence of UTI Will treat with Keflex based on previous cultures Rx for Keflex and Pyridium sent to pt's pharmacy Plan for D/C w/ PCP f/u Discharge instructions and return precautions given Patient in agreement and verbalized understanding Dispo: Home 07/08/19 00:26 Discharge - Discharge Information Problems reviewed: Yes Clinical Impression/Diagnosis: Vaginal bleeding Urinary tract infection Qualifiers: Urinary tract infection type: acute cystitis Hematuria presence: with hematuria Qualified Code(s): N30.01 - Acute cystitis with hematuria Condition: Stable Disposition: HOME - Admission No - Additional Discharge Information Prescriptions: Cephalexin Monohydrate [Keflex -] 500 mg PO BID #14 capsule Phenazopyridine HCl [Pyridium -] 100 mg PO PC #6 tablet - Follow up/Referral Referrals: Jamie Blanca MD [Primary Care Provider] - - Patient Discharge Instructions Patient Printed Discharge Instructions: DI for Urinary Tract Infection (UTI) Additional Instructions: You were seen in the Emergency Department for evaluation of vaginal bleeding. You were found to have a urinary tract infection. Prescriptions for Keflex ( antibiotic) and Pyridium (anti-spasmotic) was sent to your pharmacy. Take as directed and take all of the antibiotic course. Review the handout provided at discharge. Follow up with your primary care provider within the week. Return to the Emergency Department if you develop fevers, chest pain, trouble breathing, worsening symptoms, or any new/concerning symptoms. - Post Discharge Activity
--- NOTE | 2019-07-08 00:15 | PDOC ---
Documentation entered by Adri Pandya SCRIBE, acting as scribe for Kendal Lares MD. Kendal Lares MD: This documentation has been prepared by the wolfibe, Adri Pandya SCRIBE, under my direction and personally reviewed by me in its entirety. I confirm that the documentation accurately reflects all work, treatment, procedures, and medical decision making performed by me. Attending Attestation - Resident Resident Name: Adilson Mead - ED Attending Attestation I have performed the following: I have examined & evaluated the patient, The case was reviewed & discussed with the resident, I agree w/resident's findings & plan, Exceptions are as noted - HPI HPI: 07/08/19 00:11 24-year-old female who got her last Depo shot 3 months ago and presents because of some irregular vaginal bleeding - Physicial Exam PE: 07/08/19 00:12 wnwd 24 yo female head ncat neck supple lungs cta b/l cvs [id number] abd no rebound, no guarding no flank pain neuro axox3,ambulatory - Medical Decision Making 07/08/19 00:14 pt p/w concern for irregular vaginal bleeding 07/08/19 00:30 Urine hCG is negative UA does show a mild urinary tract infection and she will be started on Keflex Patient requested muscle relaxants for low back pain I explained that she should take [id number] medications because she has not tried these for her back pain. And it was best not to start her on muscle relaxants or narcotics at this time
[2019-07-08 00:20] LABS: EPI CELLS >36 /HPF (0-5/HPF); HYALINE CASTS 15 /lpf (0-8); PH,URINE 5.5 (5.0-8.0); URINE APPEARANCE TURBID; URINE BACTERIA 102.7 /hpf (NEGATIVE); URINE BILIRUBIN 1+ (NEGATIVE); URINE COLOR RED; URINE GLUCOSE (UA) NEGATIVE (NEGATIVE); URINE KETONE NEGATIVE (NEGATIVE); URINE LEUK ESTERASE 1+ (NEGATIVE); URINE NITRITE NEGATIVE (NEGATIVE); URINE PROTEIN 2+ (NEGATIVE); URINE UROBILINOGEN 0.2 mg/dL (0.2-1.0); URINE WBC 11 /hpf (0-5)
[2019-07-08 03:40] LABS: URINE RBC 949 /hpf (0-4)
== END 2019-07-08 00:56 | disposition home or self-care (01) ==
LOC: JER 22:15
DX: N30.01 Acute cystitis with hematuria (principal)
CPT/HCPCS: 81003; 84703; 87086; 99282-25

== ENCOUNTER 2019-08-08 08:25 | Emergency (ER) | payer OTHER ==
[2019-08-08 08:34] VITALS: BP 124/68; TEMP 98.6; BMI 34.7
[2019-08-08] MEDS ORDERED: IBUPROFEN 600 MG TABLET (FP) PO ONE ×2 (09:16→09:48)
[2019-08-08 10:04] VITALS: PULSE 117
[2019-08-08 10:06] LABS: BASO % 0.3 % (0-2.0); HEMOGLOBIN 16.3 GM/dL (10.7-15.3); LYMPH % 27.7 % (8-40); MCH 27.6 pg (25.7-33.7); MCHC 34.1 g/dl (32.0-36.0); MEAN PLT VOLUME 11.8 fl (7.5-11.1); MONO % 10.5 % (3.8-10.2); NEUT % 61.5 % (42.8-82.8); PLATELET COUNT 121 K/MM3 (134-434); RBC 5.92 M/mm3 (3.60-5.2); RDW 13.8 % (11.6-15.6); WHITE BLOOD COUNT 4.5 K/mm3 (4.0-10.0)
[2019-08-08 10:20] LABS: HYALINE CASTS 17 /lpf (0-8); PH,URINE 6.5 (5.0-8.0); URINE APPEARANCE CLOUDY; URINE BACTERIA 286.8 /hpf (NEGATIVE); URINE BILIRUBIN NEGATIVE (NEGATIVE); URINE COLOR YELLOW; URINE GLUCOSE (UA) NEGATIVE (NEGATIVE); URINE KETONE TRACE (NEGATIVE); URINE LEUK ESTERASE NEGATIVE (NEGATIVE); URINE NITRITE NEGATIVE (NEGATIVE); URINE PROTEIN 1+ (NEGATIVE); URINE RBC 1 /hpf (0-4); URINE WBC 5 /hpf (0-5)
--- NOTE | 2019-08-08 10:35 | PDOC ---
History of Present Illness - General History Source: Patient Exam Limitations: No Limitations - History of Present Illness Initial Comments: 08/08/19 10:30 24-year-old female presents to ED with complaints of bilateral finger pain intermittently rating to her wrists worsened with pressure exertion. Patient also states mild bilateral knee pain for the past few days. Patient states took Aleve with good effect patient also states that a hot bath with good effect but when symptoms return she decided come to the ER for further evaluation. Patient denies any injury, recent travel, recent illness, medical history, skin discoloration, rash, or history of the same. Is this a multiple visit Asthma Patient?: No Timing/Duration: other Severity: mild Modifying Factors: improves with: movement Associated Symptoms: reports: other <Jessica Costa - Last Filed: 08/08/19 10:49> <Daquan Gillespie - Last Filed: 08/13/19 20:05> - General Chief Complaint: Pain Stated Complaint: PAIN Time Seen by Provider: 08/08/19 09:12 Past History - Travel Traveled outside of the country in the last 30 days: No Close contact w/someone who was outside of country & ill: No - Past Medical History COPD: No DVT: No - Reproductive History (#): 0 Cervical CA: No Dysfunctional Uterine Bleeding: No Ectopic : No Endometrial CA: No Polycystic Ovaries: No Therapeutic (s) & number: No - Immunization History Immunization Up to Date: Yes - Psycho Social/Smoking Cessation Hx Smoking Status: No Smoking History: Unknown if ever smoked Have you smoked in the past 12 months: No Number of Cigarettes Smoked Daily: 0 Cigars Per Day: 0 Hx Alcohol Use: No Drug/Substance Use Hx: No Substance Use Type: None Hx Substance Use Treatment: No Lives with/in: parents <Jessica Costa - Last Filed: 08/08/19 10:49> <Daquan Gillespie - Last Filed: 08/13/19 20:05> - Past Medical History Allergies/Adverse Reactions: Allergies Allergy/AdvReac Type Severity Reaction Status Date / Time No Known Allergies Allergy Verified 08/08/19 08:29 Home Medications: Ambulatory Orders NK [No Known Home Medication] 08/08/19 Review of Systems - Review of Systems Able to Perform ROS?: Yes Is the patient limited [place] proficient: No Constitutional: No: Symptoms Reported HEENTM: No: Symptoms Reported Respiratory: No: Symptoms reported Cardiac (ROS): No: Symptoms Reported ABD/GI: No: Symptoms Reported : No: Symptoms Reported Musculoskeletal: Yes: Joint Pain. No: Muscle Pain Integumentary: No: Symptoms Reported Neurological: No: Symptoms reported Endocrine: No: Symptoms Reported Hematologic/Lymphatic: No: Symptoms Reported <Jessica Costa - Last Filed: 08/08/19 10:49> *Physical Exam - Vital Signs Last Vital Signs Temp Pulse Resp BP Pulse Ox 98.6 F 117 H 18 124/68 99 08/08/19 08:30 08/08/19 09:15 08/08/19 09:15 08/08/19 08:30 08/08/19 09:15 - Physical Exam General Appearance: Yes: Nourished, Appropriately Dressed. No: Apparent Distress HEENT: positive: Pharynx Normal. negative: Pale Conjunctivae Neck: positive: Normal Thyroid, Supple Respiratory/Chest: positive: Lungs Clear, Normal Breath Sounds. negative: Respiratory Distress, Accessory Muscle Use Cardiovascular: positive: Regular Rhythm, Tachycardia (114 on portable monitor) Gastrointestinal/Abdominal: positive: Soft. negative: Tenderness Integumentary: positive: Normal Color, Warm, Moist Neurologic: positive: Motor Strength 5/5 (hand grasp, ambulatory) <Jessica Costa - Last Filed: 08/08/19 10:49> - Vital Signs Last Vital Signs Temp Pulse Resp BP Pulse Ox 98.6 F 117 H 18 124/68 99 08/08/19 08:30 08/08/19 09:15 08/08/19 09:15 08/08/19 08:30 08/08/19 09:15 <VernaDaquan - Last Filed: 08/13/19 20:05> ED Treatment Course - LABORATORY CBC & Chemistry Diagram: 08/08/19 09:37 08/08/19 09:37 - ADDITIONAL ORDERS Additional order review: Laboratory Results 08/08/19 09:38 Urine Color Yellow Urine Appearance Cloudy Urine pH 6.5 Ur Specific [place] 1.019 Urine Protein 1+ H Urine Glucose (UA) Negative Urine Ketones Trace H Urine Blood Negative Urine Nitrite Negative Urine Bilirubin Negative Urine Urobilinogen 1.0 Ur Leukocyte Esterase Negative Urine WBC (Auto) 5 Urine RBC (Auto) 1 Urine Casts (Auto) 17 U Epithel Cells (Auto) 29.0 Urine Bacteria (Auto) 286.8 08/08/19 09:37 RBC 5.92 H MCV 81.0 MCHC 34.1 RDW 13.8 Neutrophils % 61.5 D Lymphocytes % 27.7 D Monocytes % 10.5 H Eosinophils % 0.0 D Basophils % 0.3 - Medications Given in the ED: ED Medications Discontinued Medications Generic Name Dose Route Start Last Admin Trade Name Freq PRN Reason Stop Dose Admin Ibuprofen 600 mg 08/08/19 09:16 08/08/19 09:58 Motrin - PO 08/08/19 09:17 600 mg ONCE ONE Administration <Jessica Costa - Last Filed: 08/08/19 10:49> - LABORATORY CBC & Chemistry Diagram: 08/08/19 09:37 08/08/19 09:37 - ADDITIONAL ORDERS Additional order review: 08/08/19 09:37 RBC 5.92 H MCV 81.0 MCHC 34.1 RDW 13.8 MPV 11.8 H Neutrophils % 61.5 D Lymphocytes % 27.7 D Monocytes % 10.5 H Eosinophils % 0.0 D Basophils % 0.3 - Medications Given in the ED: ED Medications Discontinued Medications Generic Name Dose Route Start Last Admin Trade Name Freq PRN Reason Stop Dose Admin Ibuprofen 600 mg 08/08/19 09:16 08/08/19 09:58 Motrin - PO 08/08/19 09:17 600 mg ONCE ONE Administration <Daquan Gillespie - Last Filed: 08/13/19 20:05> Medical Decision Making - Medical Decision Making 08/08/19 10:33 Chief complaint: Bilateral hand bilateral knee pain the past few days. Patient states took Aleve and a hot bath with good effect. Exam: Patient with no reproducible pain full range of motion noted. Plan: Patient order for Motrin along with labs secondary to elevated heart rate to rule out other etiology. 08/08/19 10:36 Laboratory Tests 07/03/15 08/08/19 08/08/19 15:28 09:37 09:38 WBC 4.5 Hgb 16.3 H Hct 48.0 H Monocytes % 10.5 H Urine Protein 1+ H Urine Nitrite Negative Urine Ketones Trace H Ur Leukocyte Esterase 1+ H Negative Urine WBC 3 Ur Epithelial Cells Moderate Urine WBC (Auto) 5 Urine Bacteria (Auto) 286.8 Urine Mucus Rare Patient given 3 cups of water. Repeat heart rate 99. Will await remaining labs 08/08/19 10:50 Laboratory Tests 08/08/19 09:37 Sodium 138 Potassium 3.7 Chloride 105 Carbon Dioxide 25 Anion Gap 7 L BUN 8.2 Creatinine 0.8 Random Glucose 87 Calcium 8.8 Total Bilirubin 0.4 AST 58 H ALT 68 H Alkaline Phosphatase 143 H Total Protein 8.0 Albumin 3.9 TSH 0.66 Patient states feeling much better. Patient will be discharged home with recommendations to follow-up with her PCP. <Jessica Costa - Last Filed: 08/08/19 10:49> - Medical Decision Making The patient was seen and evaluated in conjunction with JULIANA Costa under my direct supervision, ancillary studies were reviewed. I independently interviewed and evaluated the patient and I agree with the plan as outlined by JULIANA Costa. <Daquan Gillespie - Last Filed: 08/13/19 20:05> Discharge - Discharge Information Problems reviewed: Yes <Jessica Costa - Last Filed: 08/08/19 10:49> <Daquan Gillespie - Last Filed: 08/13/19 20:05> - Discharge Information Clinical Impression/Diagnosis: Joint pain Condition: Improved Disposition: HOME - Follow up/Referral Referrals: Jamie Blanca MD [Primary Care Provider] - - Patient Discharge Instructions Patient Printed Discharge Instructions: DI for Arthralgia Additional Instructions: Continue to take Aleve or Motrin 600 mg for pain. Try heating pad or hot bath alleviate discomfort. Follow-up with your doctor for continuation of care. - Post Discharge Activity
[2019-08-08 10:36] LABS: ALBUMIN 3.9 g/dl (3.4-5.0); BILIRUBIN,TOTAL 0.4 mg/dL (0.2-1); BLOOD UREA NITROGEN 8.2 mg/dL (7-18); CALCIUM 8.8 mg/dL (8.5-10.1); CREATININE 0.8 mg/dL (0.55-1.3); POTASSIUM 3.7 mmol/L (3.5-5.1)
[2019-08-08 14:23] LABS: ANISOCYTOSIS 0; MACROCYTOSIS 0; PLATELET ESTIMATE DECREASED
== END 2019-08-08 11:02 | disposition home or self-care (01) ==
LOC: JER 08:25
DX: M25.562 Pain in left knee (principal); M25.561 Pain in right knee; M25.541 Pain in joints of right hand; M25.542 Pain in joints of left hand
CPT/HCPCS: 36415; 80053; 81003; 84443; 85025; 99283-25